=== PATIENT | female | born 1935 | race Caucasian/White ===

== ENCOUNTER 2020-08-20 19:47 | Emergency (ER) | payer OTHER ==
[~2020-08-20] VITALS: Ht 152.4 cm; Wt 59.0 kg
[2020-08-20] MEDS ORDERED: LOSARTAN POTASS50 MG PO (20:00)
[2020-08-20] MEDS ORDERED: ST. JOSEPH ASPI81 M2 PO (20:00)
[2020-08-20] MEDS ORDERED: OMEGA-3 ACID ETH1 GM PO (20:00)
[2020-08-20] MEDS ORDERED: METOPROLOL TART50 MG PO (20:00)
[2020-08-20] MEDS ORDERED: DONEPEZIL HCL5 MG PO (20:01)
[2020-08-20] MEDS ORDERED: CO Q-10100 MG PO (20:01)
[2020-08-20] MEDS ORDERED: ROSUVASTATIN CA20 MG PO (20:01)
== END 2020-08-21 12:33 | disposition home or self-care (01) ==
LOC: ER 19:47
DX: R60.0 Localized edema (principal); M79.605 Pain in left leg; I87.2 Venous insufficiency (chronic) (peripheral); F02.80 Dementia in other diseases classified elsewhere, unspecified severity, without behavioral disturbance, psychotic disturbance, mood disturbance, and anxiety; S90.32XS Contusion of left foot, sequela; S90.02XS Contusion of left ankle, sequela; W18.09XS Striking against other object with subsequent fall, sequela

== ENCOUNTER 2023-03-18 18:50 | Inpatient (IN) | payer OTHER ==
[~2023-03-18] VITALS: Ht 152.4 cm; Wt 54.4 kg
[~2023-03-18 18:50] MED LIST: CO Q-10100 MG PO; DONEPEZIL HCL5 MG PO; LOSARTAN POTASS50 MG PO; METOPROLOL TART50 MG PO; OMEGA-3 ACID ETH1 GM PO; ROSUVASTATIN CA20 MG PO; ST. JOSEPH ASPI81 M2 PO
[2023-03-18 20:31] LABS: PH,URINE 6.5 (5.0-8.0); URINE APPEARANCE Cloudy; URINE BILIRRUBIN Negative (NEGATIVE); URINE BLOOD Large; URINE COLOR Yellow; URINE GLUCOSE Negative (NEGATIVE); URINE LEUKOCYTE Large; URINE NITRATE Negative; URINE PROTEIN 30 (NEGATIVE); URINE UROBILINOGEN 0.2 E.U./dl
[2023-03-18 20:33] LABS: URINE EPITHELIAL CELLS 11.5 uL (0.0-38.8); URINE RBC 254.3 uL (0.0-20.8)
[2023-03-18 20:45] LABS: HEMOGLOBIN 12.2 g/dL (12.0-15.00); MEAN CELL VOLUME 88.4 fL (80.00-100.00); MEAN CORPUSCULAR HEMOGLOBIN 30.7 pg (27.00-32.0); MEAN CORPUSCULAR HGB CONC 34.7 g/dl (32.0-36.0); PLATELET COUNT 277 K/uL (150-450); RED BLOOD COUNT 3.96 M/uL (4.00-6.00); RED CELL DISTRIBUTION WIDTH 15.8 % (11.5-14.5)
[2023-03-18 21:01] LABS: ALBUMIN 2.4 gm/dL (3.4-5.0); BILIRUBIN TOTAL 0.39 mg/dL (0.3-1.2); CALCIUM 9.2 mg/dL (8.5-10.1); CREATININE SERUM 0.56 mg/dL (0.55-1.02); GFR 102.89; POTASSIUM 4.31 mEq/L (3.5-5.1); TOTAL PROTEIN 6.4 gm/dL (6.4-8.2)
[2023-03-18 21:16] LABS: URINE BACTERIA > 9821.2 uL (0.0-1933); URINE MUCUS SCANT
[2023-03-18 21:17] LABS: URINE BACTERIA MANY
[2023-03-19 00:59] LABS: INR 1.01; PARTIAL THROMBOPLASTIN TIME 28.2 SECONDS (22.0-34.0); PROTHROMBIN TIME 10.6 SECONDS (9.0-11.5)
[2023-03-21 08:18] LABS: ALBUMIN 2.1 gm/dL (3.4-5.0); BILIRUBIN TOTAL 0.24 mg/dL (0.3-1.2); CALCIUM 8.3 mg/dL (8.5-10.1); CREATININE SERUM 0.37 mg/dL (0.55-1.02); GFR 165.98; GLOBULINA 3.3 G/DL (2.4-3.5); MAGNESIUM 2.2 mg/dL (1.8-2.4); POTASSIUM 3.5 mEq/L (3.5-5.1); TOTAL PROTEIN 5.4 gm/dL (6.4-8.2)
[2023-03-21 08:21] LABS: HEMATOCRIT 31.6 % (36.0-45.00); HEMOGLOBIN 10.7 g/dL (12.0-15.00); MEAN CELL VOLUME 87.8 fL (80.00-100.00); MEAN CORPUSCULAR HEMOGLOBIN 29.8 pg (27.00-32.0); PLATELET COUNT 246 K/uL (150-450); RED BLOOD COUNT 3.59 M/uL (4.00-6.00); RED CELL DISTRIBUTION WIDTH 16.1 % (11.5-14.5)
[2023-03-22 12:30] LABS: PH,URINE 7.5 (5.0-8.0); URINE APPEARANCE Clear; URINE BILIRRUBIN Negative (NEGATIVE); URINE BLOOD NHT; URINE COLOR Yellow; URINE GLUCOSE Negative (NEGATIVE); URINE LEUKOCYTE Small; URINE NITRATE Negative; URINE PROTEIN Negative (NEGATIVE); URINE UROBILINOGEN 0.2 E.U./dl
[2023-03-22 12:34] LABS: URINE BACTERIA 28.9 uL (0.0-1933); URINE EPITHELIAL CELLS 13.9 uL (0.0-38.8); URINE RBC 169.8 uL (0.0-20.8); URINE WBC 36.6 uL (0.0-23.2)
[2023-03-23 07:25] LABS: CALCIUM 8.5 mg/dL (8.5-10.1); CREATININE SERUM 0.5 mg/dL (0.55-1.02); GFR 117.26; HEMATOCRIT 32.6 % (36.0-45.00); HEMOGLOBIN 11.5 g/dL (12.0-15.00); MEAN CELL VOLUME 87.5 fL (80.00-100.00); MEAN CORPUSCULAR HGB CONC 35.4 g/dl (32.0-36.0); PLATELET COUNT 244 K/uL (150-450); POTASSIUM 4.15 mEq/L (3.5-5.1); RED BLOOD COUNT 3.72 M/uL (4.00-6.00); RED CELL DISTRIBUTION WIDTH 15.9 % (11.5-14.5)
[2023-03-25] MEDS ORDERED: INTESTINEX680 M1 PO (09:11)
== END 2023-03-25 11:40 | DRG 690 ==
LOC: ER 18:50 → MEDI 23:11
PROVIDERS: General Practice; ADMIT Internal Medicine; ATTEND Internal Medicine
PROC: BW21ZZZ Computerized Tomography (CT Scan) of Abdomen and Pelvis (ICD-10-PCS; principal; 2023-03-18)
DX: N39.0 Urinary tract infection, site not specified (principal); N20.1 Calculus of ureter; B96.20 Unspecified Escherichia coli [E. coli] as the cause of diseases classified elsewhere; B95.2 Enterococcus as the cause of diseases classified elsewhere; I10 Essential (primary) hypertension; E11.8 Type 2 diabetes mellitus with unspecified complications; Z79.4 Long term (current) use of insulin; E03.9 Hypothyroidism, unspecified; E78.49 Other hyperlipidemia; L98.429 Non-pressure chronic ulcer of back with unspecified severity

== ENCOUNTER 2024-05-19 00:08 | Inpatient (IN) | payer OTHER ==
[~2024-05-19] VITALS: Ht 162.6 cm; Wt 45.4 kg
[~2024-05-19 00:08] MED LIST changes: +INTESTINEX680 M1 PO
--- NOTE | 2024-05-19 00:24 | NUR ---
SE RECIBE PTE ALERTA, ORIENTADA EN PERSONA EN AMBULANCIA CON NON-REBREATHING MASK AL 100%. FAMILIAR REFIERE QUE HOGAR DE ENVEJECIENTES DONDE RESIDE ACTIVO AMBULANCIA POR VOMITOS X3 A LAS 10PM Y DIFICULTAD RESPIRATORIA. SE MIDE SV, SE REALIZA EKG Y SE UBICA PTE EN CAMA #1 EN UNIDAD DE CRITICO CONECTADA A MONITOR CARDIACO Y OXIMETRIA DE PULSO CONTINUA.
[2024-05-19] MEDS ORDERED: LEVALBUTEROL HCL 0.63 MG/3 ML SOLUTION IH SCH ×2 (00:30→05:00)
[2024-05-19] MEDS ORDERED: LEVALBUTEROL HCL 0.63 MG/3 ML SOLUTION IH ONE ×2 (00:41→05:30)
[2024-05-19] MEDS ORDERED: levoFLOXacin IN DEXTROSE 5 % 500MG/100ML PIGGYBAG IV STA (00:59)
[2024-05-19] MEDS ORDERED: levoFLOXacin IN DEXTROSE 5 % 500MG/100ML PIGGYBAG IV ONE (01:09)
[2024-05-19 01:34] LABS: HEMATOCRIT 44.5 % (36.0-45.00); HEMOGLOBIN 14.8 g/dL (12.0-15.00); MEAN CELL VOLUME 88.6 fL (80.00-100.00); MEAN CORPUSCULAR HEMOGLOBIN 29.4 pg (27.00-32.0); MEAN CORPUSCULAR HGB CONC 33.2 g/dl (32.0-36.0); PLATELET COUNT 306 K/uL (150-450); RED BLOOD COUNT 5.03 M/uL (4.00-6.00); RED CELL DISTRIBUTION WIDTH 15.5 % (11.5-14.5)
--- NOTE | 2024-05-19 02:10 | NUR ---
SE ORIENTA FAMILIARES SOBRE TX MEDICO EL CUAL REFIERE ENTENDER,SE LE EXTRAEN MUESTRAS BAJO MEDIDAS ASEPTICAS,CANALIZA EN MANO RT POR PARAMEDICOS LA CUAL SE ENCUENTRA PATENTE Y ROLLY DE EDEMA.SE LE ADMINISTRAN MEDICAMENTOS.SE REALIZA EKG.SE NOTIFICAN ABG Y TERAPIAS RESP A MR LEDESMA.SE CONECTA A MONITOR CARDIACO Y OXIMETRIA.PTE EVACUADA,SE REALIZA ASEO PERIANAL.SE LE CAIN CAMBIO DE POSICION.SE CONECTA A MONITOR CARDIACO Y OXIMETRIA,SE OMID BAJO OBSERVSCION POR CAMBIOS.
[2024-05-19 02:11] LABS: INR 1.07; PARTIAL THROMBOPLASTIN TIME 25.9 SECONDS (22.0-34.0); PROTHROMBIN TIME 11.6 SECONDS (9.0-11.5)
[2024-05-19 02:16] LABS: ALBUMIN 2.7 gm/dL (3.4-5.0); BILIRUBIN TOTAL 0.5 mg/dL (0.3-1.2); CREATININE SERUM 0.61 mg/dL (0.55-1.02); GFR 92.78; GLOBULINA 5.3 G/DL (2.4-3.5); POTASSIUM 3.51 mEq/L (3.5-5.1)
[2024-05-19 02:18] LABS: URINE APPEARANCE Turbid; URINE BILIRRUBIN Negative (NEGATIVE); URINE BLOOD Large; URINE COLOR Yellow; URINE GLUCOSE Negative (NEGATIVE); URINE KETONE Negative (NEGATIVE); URINE LEUKOCYTE Large; URINE NITRATE Positive; URINE PROTEIN 30 (NEGATIVE)
[2024-05-19 02:20] LABS: URINE CAST 1.61 uL (0.0-1.40); URINE EPITHELIAL CELLS 15.6 uL (0.0-38.8); URINE RBC 645.6 uL (0.0-20.8)
[2024-05-19 02:31] LABS: URINE BACTERIA > 9821.5 uL (0.0-1933); URINE WBC > 5548.3 uL (0.0-23.2)
[2024-05-19 03:50] LABS: ABG PH 7.398 (7.35-7.45); ABG PO2 85.4 mmHg (80-100); ABG pCO2 42.9 mmHg (35-45); BASE EXCESS 0.8 mmol/l; BICARBONATE 25.9 mmol/l (23-25); SaO2 96.4 %; Tco2 27.2 mmol/l; allen test SATISFACTORY; o2 100 %; puncture site RADIAL RIGHT
--- NOTE | 2024-05-19 04:49 | NUR ---
PTE SIN CAMBIOS AL MOMENTO.
--- NOTE | 2024-05-19 07:33 | NUR ---
SE RECIBE PACIENTE FEMENINA ALERTA Y DESORIENTADA X3, EN AREA DE CRITICO EN LA CAMA #1 CON BARANDAS ELEVADAS. SE CONECTADA A MONITOR CARDICO, OXIEMTRIA DE PULSO Y NON-REBREATHING AL 100%. AREA DE VENOPUNCION EN EL BRAZO DERECHO CON ANGIO #20 CON H/L PATENTE ROLLY DE EDEMA Y ENROJECIMIENTO. SE OBSERVA DELVALLE CON ORINA COLOR GAYATHRI. SE OBSERVA POR CAMBIOS.
[2024-05-19] MEDS ORDERED: LEVALBUTEROL HCL 1.25 MG/3 ML SOLUTION IH ONE (08:41)
[2024-05-19] MEDS ORDERED: 0.9 % SODIUM CHLORIDE 1,000 ML IV SCH (12:00)
[2024-05-19] MEDS ORDERED: FAMOTIDINE/PF 20 MG in 0.9 % SODIUM CHLORIDE 8 ML IV PUSH SCH (12:02)
[2024-05-19] MEDS ORDERED: ACETAMINOPHEN 325 MG TABLET PO PRN (12:15)
[2024-05-19] MEDS ORDERED: METHYLPREDNISOLONE SOD SUCC 40 MG VIAL IV SCH (12:21)
[2024-05-19] MEDS ORDERED: ENALAPRILAT DIHYDRATE 1.25 MG/ML VIAL IV PRN (12:30)
[2024-05-19] MEDS ORDERED: INSULIN LISPRO 1,000 UNIT/10 ML UNITS SUBCUTANEO PRN (12:30)
[2024-05-19] MEDS ORDERED: DEXTROSE 50 % IN WATER 0.5 G/ML DISP.SYRIN IV PRN (12:30)
[2024-05-19] MEDS ORDERED: ACETAMINOPHEN 500 MG GEL..CAP PO PRN (13:00)
[2024-05-19 13:19] VITALS: BP 100/79
[2024-05-19 14:32] VITALS: O2SAT 90
[2024-05-19 15:30] VITALS: BP 113/70
[2024-05-19] MEDS ORDERED: levoFLOXacin IN DEXTROSE 5 % 150 ML IV SCH (17:00)
[2024-05-19 18:00] VITALS: O2SAT 97
[2024-05-19 21:55] VITALS: O2SAT 90
[2024-05-20] VITALS (9 sets, daily range): BP systolic 117–140; BP diastolic 67–78; O2SAT 97–100
[2024-05-20] MEDS ORDERED: LEVOTHYROXINE SODIUM 25 MCG TABLET PO SCH (06:00)
[2024-05-20] MEDS ORDERED: FAMOTIDINE/PF 20 MG in 0.9 % SODIUM CHLORIDE 8 ML IV PUSH SCH (09:00)
[2024-05-20] MEDS ORDERED: POLYETHYLENE GLYCOL 3350 17 GM BLIST.PACK PO SCH (14:12)
[2024-05-20] MEDS ORDERED: MEROPENEM 500 MG/VIAL VIAL IV SCH (17:00)
[2024-05-20] MEDS ORDERED: GUAIFENESIN 200 MG/10 ML BLIST.PACK PO SCH (21:00)
[2024-05-20] MEDS ORDERED: VANCOMYCIN HCL 5 MG/ML REDILUIDO IV SCH (21:00)
[2024-05-21] VITALS (8 sets, daily range): BP systolic 161–174; BP diastolic 80–83; O2SAT 98–100
[2024-05-21 07:35] LABS: HEMATOCRIT 32.3 % (36.0-45.00); HEMOGLOBIN 10.8 g/dL (12.0-15.00); MEAN CELL VOLUME 87.4 fL (80.00-100.00); MEAN CORPUSCULAR HEMOGLOBIN 29.3 pg (27.00-32.0); MEAN CORPUSCULAR HGB CONC 33.5 g/dl (32.0-36.0); PLATELET COUNT 203 K/uL (150-450); RED CELL DISTRIBUTION WIDTH 15.7 % (11.5-14.5)
[2024-05-21 08:03] LABS: ALBUMIN 2.1 gm/dL (3.4-5.0); BILIRUBIN TOTAL 0.51 mg/dL (0.3-1.2); CALCIUM 8.8 mg/dL (8.5-10.1); CREATININE SERUM 0.41 mg/dL (0.55-1.02); GFR 146.74; GLOBULINA 3.7 G/DL (2.4-3.5); MAGNESIUM 1.5 mg/dL (1.8-2.4); POTASSIUM 3.4 mEq/L (3.5-5.1); TOTAL PROTEIN 5.8 gm/dL (6.4-8.2)
[2024-05-21 08:34] LABS: C-REACTIVE PROTEIN 18.4 MG/DL (0.00-0.29); PHOSPHOROUS 1.7 mg/dL (2.5-4.9)
[2024-05-21] MEDS ORDERED: NAPH,MB-DB/K PH,MBDB 1 PKT PACKET PO SCH (10:33)
[2024-05-21] MEDS ORDERED: MAGNESIUM SULFATE IN WATER 50 ML IV NR (10:45)
[2024-05-21] MEDS ORDERED: POTASSIUM CHLORIDE 10 MEQ CAPSULE PO NR (10:45)
[2024-05-22] VITALS (8 sets, daily range): BP systolic 124–141; BP diastolic 74–80; O2SAT 96–100
[2024-05-22 08:04] LABS: URINE APPEARANCE Clear; URINE BILIRRUBIN Negative (NEGATIVE); URINE BLOOD NHT; URINE COLOR Yellow; URINE GLUCOSE Negative (NEGATIVE); URINE LEUKOCYTE Trace; URINE NITRATE Negative; URINE PROTEIN 30 (NEGATIVE)
[2024-05-22 08:09] LABS: CALCIUM 8.5 mg/dL (8.5-10.1); CREATININE SERUM 0.3 mg/dL (0.55-1.02); GFR 210.43; POTASSIUM 3.21 mEq/L (3.5-5.1)
[2024-05-22 08:09] LABS: URINE CAST 2.06 uL (0.0-1.40); URINE EPITHELIAL CELLS 2.3 uL (0.0-38.8); URINE RBC 435.8 uL (0.0-20.8); URINE WBC 49.7 uL (0.0-23.2)
[2024-05-22] MEDS ORDERED: FAMOTIDINE/PF 20 MG/2 ML VIAL ONE (08:36)
[2024-05-22] MEDS ORDERED: BUDESONIDE 0.5 MG/2 ML AMPUL.NEB IH SCH (09:04)
[2024-05-22 09:39] LABS: URINE KETONE 40 (NEGATIVE); URINE YEAST MODERATE /hpf
[2024-05-22 09:40] LABS: URINE MUCUS SCANT
[2024-05-22] MEDS ORDERED: MINERAL OIL 133 ML ENEMA RECTAL NR (10:56)
[2024-05-22 18:03] LABS: ABG PH 7.425 (7.35-7.45); ABG PO2 80.6 mmHg (80-100); ABG pCO2 42.3 mmHg (35-45); BASE EXCESS 2.4 mmol/l; BICARBONATE 27.1 mmol/l (23-25); SaO2 96.2 %; Tco2 28.4 mmol/l
[2024-05-22 18:25] LABS: allen test SATISFACTORY; o2 50 %; puncture site RADIAL RIGHT
[2024-05-23] VITALS (9 sets, daily range): BP systolic 100–173; BP diastolic 65–94; O2SAT 93–97
[2024-05-23 06:15] LABS: HEMATOCRIT 31.8 % (36.0-45.00); HEMOGLOBIN 10.7 g/dL (12.0-15.00); MEAN CELL VOLUME 87.4 fL (80.00-100.00); MEAN CORPUSCULAR HEMOGLOBIN 29.3 pg (27.00-32.0); MEAN CORPUSCULAR HGB CONC 33.5 g/dl (32.0-36.0); PLATELET COUNT 181 K/uL (150-450); RED BLOOD COUNT 3.64 M/uL (4.00-6.00); RED CELL DISTRIBUTION WIDTH 15.7 % (11.5-14.5)
[2024-05-23] MEDS ORDERED: METOPROLOL TARTRATE 5MG/5ML AMPUL IV NR (16:20)
[2024-05-24] VITALS (8 sets, daily range): BP systolic 156–174; BP diastolic 77–97; O2SAT 94–98
[2024-05-24 06:47] LABS: HEMATOCRIT 35.5 % (36.0-45.00); HEMOGLOBIN 11.8 g/dL (12.0-15.00); MEAN CELL VOLUME 87.4 fL (80.00-100.00); MEAN CORPUSCULAR HEMOGLOBIN 29.1 pg (27.00-32.0); MEAN CORPUSCULAR HGB CONC 33.3 g/dl (32.0-36.0); PLATELET COUNT 199 K/uL (150-450); RED BLOOD COUNT 4.07 M/uL (4.00-6.00); RED CELL DISTRIBUTION WIDTH 15.5 % (11.5-14.5)
[2024-05-24 07:27] LABS: BILIRUBIN TOTAL 1.02 mg/dL (0.3-1.2); CALCIUM 9.1 mg/dL (8.5-10.1); CREATININE SERUM 0.41 mg/dL (0.55-1.02); GFR 146.74; GLOBULINA 4.3 G/DL (2.4-3.5); MAGNESIUM 2.1 mg/dL (1.8-2.4); PHOSPHOROUS 2.2 mg/dL (2.5-4.9); TOTAL PROTEIN 6.3 gm/dL (6.4-8.2)
[2024-05-24 07:39] LABS: C-REACTIVE PROTEIN 27.8 MG/DL (0.00-0.29)
[2024-05-24] MEDS ORDERED: SODIUM CHLORIDE 0.45 % 1,000 ML IV SCH (07:45)
[2024-05-24] MEDS ORDERED: POTASSIUM CHLORIDE 20MEQ/100ML H2O PB IV SCH ×2 (08:00→18:00)
[2024-05-24] MEDS ORDERED: METOPROLOL SUCCINATE 50 MG TAB.SR.24H PO SCH (09:00)
[2024-05-24] MEDS ORDERED: LOSARTAN POTASSIUM 25 MG TABLET PO SCH (09:00)
[2024-05-24] MEDS ORDERED: METOPROLOL SUCCINATE 25 MG TAB.SR.24H PO SCH (09:00)
[2024-05-24] MEDS ORDERED: CLONAZEPAM 0.5 MG TABLET PO SCH (09:00)
[2024-05-24] MEDS ORDERED: HALOPERIDOL 1 MG TABLET PO SCH (17:00)
[2024-05-24] MEDS ORDERED: MEMANTINE HCL 10 MG TABLET PO SCH (17:00)
[2024-05-24] MEDS ORDERED: METOPROLOL TARTRATE 5MG/5ML AMPUL IV NR (18:30)
[2024-05-24] MEDS ORDERED: DIPHENHYDRAMINE HCL 50 MG/ML VIAL 1ML IV SCH (21:00)
[2024-05-24] MEDS ORDERED: CEFTRIAXONE SODIUM 2,000 MG VIAL IV SCH (21:00)
[2024-05-24] MEDS ORDERED: VANCOMYCIN HCL 5 MG/ML REDILUIDO IV SCH (21:00)
[2024-05-25] VITALS (8 sets, daily range): BP systolic 123–175; BP diastolic 69–90; O2SAT 96–99
[2024-05-25 05:04] LABS: HEMATOCRIT 36.7 % (36.0-45.00); MEAN CELL VOLUME 87.9 fL (80.00-100.00); MEAN CORPUSCULAR HGB CONC 33.1 g/dl (32.0-36.0); PLATELET COUNT 207 K/uL (150-450); RED BLOOD COUNT 4.18 M/uL (4.00-6.00); RED CELL DISTRIBUTION WIDTH 15.7 % (11.5-14.5)
[2024-05-25 05:05] LABS: HEMOGLOBIN 12.1 g/dL (12.0-15.00); MEAN CORPUSCULAR HEMOGLOBIN 28.9 pg (27.00-32.0)
[2024-05-25 05:39] LABS: ALBUMIN 2.2 gm/dL (3.4-5.0); BILIRUBIN TOTAL 0.75 mg/dL (0.3-1.2); CALCIUM 9.1 mg/dL (8.5-10.1); CREATININE SERUM 0.46 mg/dL (0.55-1.02); GFR 128.5; GLOBULINA 4.9 G/DL (2.4-3.5); MAGNESIUM 2.1 mg/dL (1.8-2.4); PHOSPHOROUS 2.6 mg/dL (2.5-4.9); POTASSIUM 3.34 mEq/L (3.5-5.1); TOTAL PROTEIN 7.1 gm/dL (6.4-8.2)
[2024-05-25] MEDS ORDERED: POTASSIUM CHLORIDE 20MEQ/100ML H2O PB IV ONE ×2 (05:59→21:05)
[2024-05-25 08:00] LABS: C-REACTIVE PROTEIN 18.9 MG/DL (0.00-0.29)
[2024-05-25] MEDS ORDERED: DEXTROSE 5 % IN WATER 1,000 ML IV SCH (08:30)
[2024-05-25] MEDS ORDERED: POTASSIUM CHLORIDE 20MEQ/100ML H2O PB IV SCH (16:00)
[2024-05-26] VITALS (9 sets, daily range): BP systolic 128–177; BP diastolic 73–109; O2SAT 90–100
[2024-05-26 06:38] LABS: ALBUMIN 1.8 gm/dL (3.4-5.0); BILIRUBIN TOTAL 0.47 mg/dL (0.3-1.2); CALCIUM 8.6 mg/dL (8.5-10.1); POTASSIUM 3.41 mEq/L (3.5-5.1); TOTAL PROTEIN 5.8 gm/dL (6.4-8.2)
[2024-05-26 06:53] LABS: GFR 218.83
[2024-05-26 06:56] LABS: CREATININE SERUM 0.29 mg/dL (0.55-1.02)
[2024-05-26] MEDS ORDERED: HYDROCHLOROTHIAZIDE 25 MG TABLET PO SCH (09:50)
[2024-05-26] MEDS ORDERED: LOSARTAN POTASSIUM 50 MG TABLET PO SCH (09:50)
[2024-05-26] MEDS ORDERED: POTASSIUM CHLORIDE/D5W 20 MEQ/1,000 ML PIGGYBAG IV SCH (19:30)
[2024-05-26] MEDS ORDERED: POTASSIUM CHLORIDE/D5W 1,000 ML IV SCH (19:45)
[2024-05-27] VITALS (8 sets, daily range): BP systolic 109–140; BP diastolic 52–85; O2SAT 97–100
[2024-05-27 04:29] LABS: HEMATOCRIT 30.6 % (36.0-45.00); MEAN CORPUSCULAR HGB CONC 33.8 g/dl (32.0-36.0); PLATELET COUNT 183 K/uL (150-450); RED BLOOD COUNT 3.56 M/uL (4.00-6.00)
[2024-05-27 04:48] LABS: ALBUMIN 1.7 gm/dL (3.4-5.0); BILIRUBIN TOTAL 0.39 mg/dL (0.3-1.2); CALCIUM 8.3 mg/dL (8.5-10.1); GFR 114.07; GLOBULINA 4.1 G/DL (2.4-3.5); MAGNESIUM 1.8 mg/dL (1.8-2.4); PHOSPHOROUS 2.6 mg/dL (2.5-4.9); POTASSIUM 3.22 mEq/L (3.5-5.1); TOTAL PROTEIN 5.8 gm/dL (6.4-8.2)
[2024-05-27 05:02] LABS: HEMOGLOBIN 10.3 g/dL (12.0-15.00); MEAN CORPUSCULAR HEMOGLOBIN 28.9 pg (27.00-32.0)
[2024-05-27 05:04] LABS: CREATININE SERUM 0.51 mg/dL (0.55-1.02)
[2024-05-27] MEDS ORDERED: MIDAZOLAM HCL 2 MG/2 ML VIAL IV ONE (12:15)
[2024-05-27] MEDS ORDERED: POTASSIUM CHLORIDE 20MEQ/100ML H2O PB IV SCH (14:00)
[2024-05-28] VITALS (9 sets, daily range): BP systolic 120–141; BP diastolic 60–78; O2SAT 89–100
[2024-05-28 07:55] LABS: HEMATOCRIT 33.6 % (36.0-45.00); HEMOGLOBIN 11.1 g/dL (12.0-15.00); MEAN CELL VOLUME 87.8 fL (80.00-100.00); MEAN CORPUSCULAR HEMOGLOBIN 29.1 pg (27.00-32.0); MEAN CORPUSCULAR HGB CONC 33.2 g/dl (32.0-36.0); PLATELET COUNT 184 K/uL (150-450); RED BLOOD COUNT 3.82 M/uL (4.00-6.00); RED CELL DISTRIBUTION WIDTH 15.5 % (11.5-14.5)
[2024-05-28 08:06] LABS: CALCIUM 8.5 mg/dL (8.5-10.1); CREATININE SERUM 0.36 mg/dL (0.55-1.02); GFR 170.51; POTASSIUM 3.5 mEq/L (3.5-5.1)
[2024-05-28] MEDS ORDERED: ANIDULAFUNGIN 100 MG VIAL IV NR (14:00)
[2024-05-28] MEDS ORDERED: POTASSIUM CHLORIDE/D5W 20 MEQ/1,000 ML PIGGYBAG IV SCH (21:45)
[2024-05-29 01:00] VITALS: O2SAT 99
[2024-05-29 05:44] VITALS: O2SAT 100
[2024-05-29 07:58] LABS: CALCIUM 8.8 mg/dL (8.5-10.1); CREATININE SERUM 0.34 mg/dL (0.55-1.02); GFR 182.13; POTASSIUM 3.49 mEq/L (3.5-5.1)
[2024-05-29 09:07] VITALS: BP 129/72; O2SAT 98
[2024-05-29 09:41] VITALS: O2SAT 100
[2024-05-29] MEDS ORDERED: ANIDULAFUNGIN 100 MG VIAL IV SCH (12:00)
== END 2024-05-29 14:47 | disposition home or self-care (01) | DRG 178 ==
LOC: ER 00:08 → EMR PED 00:08 → ER 00:36 → MEDI 12:38 → SEC-K 12:38 → MEDI 13:30
PROVIDERS: General Practice; Internal Medicine; Internal Medicine Infectious Disease; Internal Medicine Nephrology; ADMIT Student in an Organized Health Care Education/Training Program; ATTEND Student in an Organized Health Care Education/Training Program
PROC: 4A12X4Z Monitoring of Cardiac Electrical Activity, External Approach (ICD-10-PCS; 2024-05-19)
PROC: BW2 Imaging, Anatomical Regions, Computerized Tomography (CT Scan) (ICD-10-PCS; 2024-05-20)
PROC: BW21ZZZ Computerized Tomography (CT Scan) of Abdomen and Pelvis (ICD-10-PCS; 2024-05-20)
PROC: 0DH63UZ Insertion of Feeding Device into Stomach, Percutaneous Approach (ICD-10-PCS; principal; 2024-05-27)
DX: J69.0 Pneumonitis due to inhalation of food and vomit (principal); E46 Unspecified protein-calorie malnutrition; E87.0 Hyperosmolality and hypernatremia; F01.52 Vascular dementia, unspecified severity, with psychotic disturbance; N39.0 Urinary tract infection, site not specified; E86.0 Dehydration; B96.20 Unspecified Escherichia coli [E. coli] as the cause of diseases classified elsewhere; E03.9 Hypothyroidism, unspecified; E11.9 Type 2 diabetes mellitus without complications; Z79.4 Long term (current) use of insulin; F32.9 Major depressive disorder, single episode, unspecified; F20.9 Schizophrenia, unspecified; Z74.01 Bed confinement status; E87.6 Hypokalemia; R13.19 Other dysphagia